=== PATIENT | female | born 1995 | race American Indian/Alaskan Native ===

== ENCOUNTER 2018-10-01 21:55 | Emergency (ER) | payer SELFPAY ==
[2018-10-01 22:05] VITALS: BP 117/61
--- NOTE | 2018-10-01 22:10 | Emergency Department Report ---
Blank Doc - Documentation Documentation: This is a 22-year-old female that presents with right eye foreign body sensati on. Stated feels like a rock is there. This initial assessment diagnostic orders/clinical plan/treatment(s) is/are subject to change based on patient's health status, clinical progression and re-assessment by fellow clinical providers in the ED. Further treatment and workup at subsequent clinical providers discretion. Patient/guardians urged not to elope from ED s their condition may be serious if not clinically assessed and managed. Initial orders include: 1-Patient sent to [facility] for further evaluation and treatment 2- Milligan lamps 3- visual acuity
[2018-10-01] MEDS ORDERED: FUL-GLO OP ONE (22:11)
[2018-10-01] MEDS ORDERED: TETRACAINE 0.5% OU ONE (22:11)
== END 2018-10-02 02:10 | disposition left against medical advice (07) ==
LOC: EDBD → ED 21:55
DX: H57.89 Other specified disorders of eye and adnexa (principal); Z88.6 Allergy status to analgesic agent

== ENCOUNTER 2021-04-26 10:08 | Inpatient (IN) | payer MEDICAID, OTHER ==
[2021-04-26] MEDS ORDERED: SODIUM CHLORIDE 0.9% 1000 ML 1,000 ML IV ONE (10:42)
--- NOTE | 2021-04-26 10:47 | Emergency Department Report ---
ED Female HPI - General Chief complaint: Vaginal Bleeding Stated complaint: WEAKNESS/LBP Time Seen by Provider: 04/26/21 10:41 Source: patient Mode of arrival: Ambulatory Limitations: No Limitations - History of Present Illness Initial comments: 25-year-old female, A1, presents to ED with vaginal bleeding. Patient states she reports approximately 5 weeks when she presented to [facility] week, 8 days ago, for medical . Patient states she was given a pill to take at that time and was instructed to take the other 4 pills, all at once, within 48 hours. Patient waited until 5 days later to take the 4 pills. Patient states she waited because she was already bleeding heavily, with large clots, from the first dose. Patient reports dizziness and syncopal episode. EMS was called, reports initial systolic BP in the 60s. Patient states the cramping and bleeding have improved greatly, however she remains ligh theaded. Patient reports previous ablation at the age of 18. MD Complaint: vaginal bleeding -: week(s) (1) Severity: severe Quality: cramping Consistency: other (Improved) Improves with: none Worsens with: none Are you Now?: Yes Associated Symptoms: vaginal bleeding - Related Data : 2 Para: 0 A: 1 Home Medications Medication Instructions Recorded Confirmed Last Taken No Known Home Medications [No 04/26/21 04/26/21 Unknown Reported Home Medications] Allergies Allergy/AdvReac Type Severity Reaction Status Date / Time morphine Allergy Hives Verified 04/26/21 10:40 ED Review of Systems ROS: Stated complaint: WEAKNESS/LBP Other details as noted in HPI Comment: All other systems reviewed and negative Constitutional: denies: fever Gastrointestinal: abdominal pain Genitourinary: as per HPI ED Past Medical Hx - Surgical History Hx Appendectomy: Yes Additional Surgical History: Tonsilectomy, Non malignant abdominal tumor - Social History Smoking Status: Never Smoker Substance Use Type: None - Medications Home Medications: Home Medications Medication Instructions Recorded Confirmed Last Taken Type No Known Home Medications [No 04/26/21 04/26/21 Unknown History Reported Home Medications] ED Physical Exam - General Limitations: No Limitations General appearance: alert, in no apparent distress - Head Head exam: Present: atraumatic, normocephalic - Eye Eye exam: Present: normal appearance - ENT ENT exam: Present: mucous membranes moist - Neck Neck exam: Present: normal inspection - Respiratory Respiratory exam: Present: normal lung sounds bilaterally. Absent: respiratory distress - Cardiovascular Cardiovascular Exam: Present: normal rhythm, tachycardia - GI/Abdominal GI/Abdominal exam: Present: soft. Absent: distended, tenderness - External exam: Present: normal external exam Speculum exam: Present: vaginal bleeding, other (foul smell present; able to clear a few clots from vaginal vault) - Neurological Exam Neurological exam: Present: alert, oriented X3 - Psychiatric Psychiatric exam: Present: normal affect, normal mood - Skin Skin exam: Present: warm, dry, intact, normal color ED Course Vital Signs 04/26/21 04/26/21 04/26/21 10:19 10:38 10:46 Temperature Pulse Rate 127 H 136 H Respiratory 18 16 20 Rate Blood Pressure 111/55 111/47 Blood Pressure [Right] O2 Sat by Pulse 100 86 Oximetry 04/26/21 04/26/21 04/26/21 11:00 11:13 11:15 Temperature 97.6 F Pulse Rate 129 H 121 H Respiratory 21 14 Rate Blood Pressure 104/40 Blood Pressure 104/40 [Right] O2 Sat by Pulse 100 98 98 Oximetry 04/26/21 04/26/21 04/26/21 11:16 11:30 11:46 Temperature Pulse Rate 123 H 128 H 121 H Respiratory 21 22 21 Rate Blood Pressure 104/40 104/40 104/40 Blood Pressure [Right] O2 Sat by Pulse 100 98 100 Oximetry 04/26/21 04/26/21 04/26/21 12:00 12:16 12:30 Temperature Pulse Rate 122 H 138 H 123 H Respiratory 21 22 21 Rate Blood Pressure 107/45 107/45 107/45 Blood Pressure [Right] O2 Sat by Pulse 100 99 100 Oximetry 04/26/21 04/26/21 04/26/21 13:32 13:46 13:55 Temperature 98.9 F Pulse Rate 123 H Respiratory 19 Rate Blood Pressure 94/32 Blood Pressure [Right] O2 Sat by Pulse 99 100 Oximetry - Reevaluation(s) Reevaluation #1: 04/26/21 12:37 electroplating technician states Hb resulted at 4.4. Result not crossing over into [employer]. Reevaluation #2: 04/26/21 13:05 electroplating technician called to state that WBC is 41 - Consultations Consultation #1: 04/26/21 13:40 Spoke w/ Dr Chapman. Will come down and see patient. ED Medical Decision Making - Lab Data Result diagrams: 04/26/21 10:48 04/26/21 10:48 - Radiology Data Radiology results: report reviewed, image reviewed - Medical Decision Making 25-year-old female presents to ED following syncopal episode with vaginal bleeding. Patient reports heavy vaginal bleeding following last week. Patient tachycardic here in the ED, afebrile, with low normal blood pressure. On pelvic exam, patient found to have foul-smelling vaginal bleeding with clots present in vaginal vault. Ultrasound shows retained products. hCG 6000. There is a delay in CBC resulting, however mechanical laboratory technician called to tell me that patient had a hemoglobin of 4.4. CBC also ended up showing WBCs of 41. Patient possibly septic secondary to retained POC's. She is also severely anemic. Lactic acid and blood cultures have been ordered. Vancomycin and cefepime given, along with normal saline bolus of 30 cc/kg. 2 units of PRBCs have also been ordered. Dr. Chapman came down to evaluate patient and has decided to take her to the OR for D&C. Patient will be admitted by Dr. Chapman. - Differential Diagnosis Anemia, retained POC's Critical Care Time: Yes Critical care time in (mins) excluding proc time.: 35 Critical care attestation.: If time is entered above; I have spent that time in minutes in the direct care of this critically ill patient, excluding procedure time. Critical Care Time: 35 min ED Disposition Clinical Impression: Symptomatic anemia, Vaginal bleeding, Sepsis, Retained products of conception following Disposition: ADMITTED INPATIENT Is pt being admited?: Yes Condition: Stable Referrals: PRIMARY CARE, [Primary Care Provider] - 3-5 Days Time of Disposition: 13:57
[2021-04-26 11:41] LABS: BUN/Creatinine Ratio 33; Blood Urea Nitrogen 30 mg/dL (7-17); Calcium 8.3 mg/dL (8.4-10.2); Hemolysis Index 0
[2021-04-26] MEDS ORDERED: SODIUM CHLORIDE 0.9% 500 ML 500 ML IV ONE ×2 (12:27→14:26)
[2021-04-26 13:01] LABS: Red Blood Count 1.58 M/mm3 (3.65-5.03)
[2021-04-26 13:03] LABS: Hematocrit 13.3 % (30.3-42.9); Hemoglobin 4.4 gm/dl (10.1-14.3); Mean Corpuscular Volume 84 fl (79-97)
[2021-04-26 13:04] LABS: Mean Corpuscular HGB Conc 33 % (30-34); Platelet Count 272 K/mm3 (140-440); Red Cell Distribution Width 14.3 % (13.2-15.2)
[2021-04-26] MEDS ORDERED: PIPERACIL/TAZOBACTA 4.5/NS 100 4.5 GM/100 ML VIAL IV ONE (13:05)
[2021-04-26] MEDS ORDERED: SODIUM CHLORIDE 0.9% 1000 ML IV SOLN IV ONE (13:22)
--- NOTE | 2021-04-26 13:22 | Ultrasound Report ---
OB Ultrasound HISTORY: vag bleeding, post pill. TECHNIQUE: Grayscale and color imaging performed. COMPARISON: None FINDINGS: Uterus measures 12.8 x 4.0 x 8.4 cm with endometrial echocomplex measuring 9 mm. There is a crescentic hypoechoic structure in the lower uterine segment which most likely represents a failed gestational sac. No internal pole or cardiac activity was demonstrated on this exam. Both ovaries are normal in size with a cyst on the right measuring 2.9 cm in maximal dimension, likel y functional. Trace simple pelvic free fluid is present. IMPRESSION: 1. Probable failed gestational sac in the region of the lower uterine segment. 2. Simple right ovarian cyst, likely functional. Signer Name: Robson Mederos MD Signed: 04/26/2021 1:17 PM Workstation Name: [id number]
[2021-04-26] MEDS ORDERED: VANCOMYCIN 1,750 MG in SODIUM CHLORIDE 0.9% 500 ML 500 ML IV ONE (14:00)
[2021-04-26] MEDS ORDERED: SODIUM CHLORIDE 0.9% 1000 ML 1,000 ML ONE (14:35)
[2021-04-26] MEDS ORDERED: HYDROmorphone 1 MG/1 ML INJ ONE (14:35)
[2021-04-26] MEDS ORDERED: propofoL 200 MG/20 ML VIAL IV ONE (14:35)
[2021-04-26] MEDS ORDERED: PHENYLEPHRINE/NS 1,000 MCG/10 ML SYRINGE (OR USE) IV ONE (14:35)
[2021-04-26] MEDS ORDERED: LIDOCAINE MPF (2%) 20 MG/1 ML VIAL 5 ML ONE (14:35)
--- NOTE | 2021-04-26 14:41 | History and Physical Report ---
History of Present Illness Date of examination: 04/26/21 History of present illness: 25-year-old female, para 0-0-1-0 presents to ED with vaginal bleeding. Patient states she reports approximately 5 weeks when she presented to [facility], 8 days ago, for medical . Patient states she was given a pill to take at that time and was instructed to take the other 4 pills, all at once, within 48 hours. Patient states she had bleeding after taking the first pill so she waited until 5 days later to take the 4 pills 3 days ago Friday the .. Patient reports dizziness and syncopal episode. EMS was called, reports initial systolic BP in the 60s. Patient states the cramping and bleeding have improved greatly, however she remains lightheaded. Patient's work-up in ED revealed a hemoglobin of 4.4 ultrasound shows "probable failed gestational sac" with products and cervical os. Patient still passing large clots. I attempted evacuation of her cervical os in the ED but I was un successful. Patient is appears to be septic and very anemic will moved to operating room for suction D&C. Past History Past Medical History: migraines, other (COVID-29 August 2020 not hospitalized) Past Surgical History: appendectomy, cholecystectomy, Other (Elective surgical at age 18) Medications and Allergies Allergies Allergy/AdvReac Type Severity Reaction Status Date / Time morphine Allergy Hives Verified 04/26/21 10:40 Home Medications Medication Instructions Recorded Confirmed Last Taken Type No Known Home Medications [No 04/26/21 04/26/21 Unknown History Reported Home Medications] Active Meds: Active Medications Vancomycin HCl 1,750 mg/ (Sodium Chloride) 535 mls @ 333 mls/hr IV ONCE ONE; Protocol Stop: 04/26/21 15:36 Last Admin: 04/26/21 14:34 Dose: 333 mls/hr Documented by: Sodium Chloride (Nacl 0.9% 500 Ml) 500 mls @ 0 mls/hr IV ONCE [facility] Stop: 04/27/21 14:25 Exam - Constitutional Vitals: Temp Pulse Resp BP Pulse Ox 98.9 F 123 H 19 94/32 100 04/26/21 13:55 04/26/21 13:46 04/26/21 13:46 04/26/21 13:46 04/26/21 13:46 General appearance: Present: mild distress, other (Complain of headache) - Respiratory Respiratory effort: normal - Cardiovascular Rhythm: other (Tachycardic) - Extremities Extremities: no ischemia, pulses intact - Abdominal General gastrointestinal: Present: soft, non-tender Female genitourinary: Present: normal, other (Blood in vaginal cuff could not clearly see her cervical os no obvious products of conception) - Rectal Rectal Exam: deferred - Integumentary Integumentary: Present: warm, dry - Psychiatric Psychiatric: appropriate mood/affect, intact judgment & insight - Neurologic Neurologic: moves all extremities Results - Labs CBC & Chem 7: 04/26/21 10:48 04/26/21 10:48 Labs: Abnormal lab results 04/26/21 04/26/21 04/26/21 Range/Units 10:48 10:48 10:48 WBC 41.1 H* (4.5-11.0) K/mm3 RBC 1.58 L (3.65-5.03) M/mm3 Hgb 4.4 L* (10.1-14.3) gm/dl Hct 13.3 L* (30.3-42.9) % Carbon Dioxide 19 L (22-30) mmol/L BUN 30 H (7-17) mg/dL Glucose 134 H (65-100) mg/dL Calcium 8.3 L (8.4-10.2) mg/dL HCG, Quant 6618 H (0-4) mIU/mL Crossmatch 04/26/21 Range/Units 10:48 WBC (4.5-11.0) K/mm3 RBC (3.65-5.03) M/mm3 Hgb (10.1-14.3) gm/dl Hct (30.3-42.9) % Carbon Dioxide (22-30) mmol/L BUN (7-17) mg/dL Glucose (65-100) mg/dL Calcium (8.4-10.2) mg/dL HCG, Quant (0-4) mIU/mL Crossmatch See Detail Assessment and Plan - Patient Problems (1) Retained products of conception following Current Visit: Yes Status: Acute Plan to address problem: Attempted to remove products of conception in the ER but was unsuccessful. We will move to operating room for suction D&C. Discussed with patient risks of the procedure including infection, bleeding possibly heavy enough to require more blood transfusion and possible perforation of the uterus. All questions answered patient understands and agrees with proceeding. (2) Sepsis Current Visit: Yes Status: Acute Qualifiers: Sepsis type: sepsis due to unspecified organism Plan to address problem: Antibiotics were started in the emergency room and will continue antibiotics postoperatively. Blood cultures also drawn in the emergency room (3) Symptomatic anemia Current Visit: Yes Status: Acute Plan to address problem: Patient has been typed and crossed for 2 units will have 2units on hold (4) Vaginal bleeding Current Visit: Yes Status: Acute
[2021-04-26] MEDS ORDERED: KETAMINE/STERILE WATER 50 MG/ML SYRINGE ONE (14:42)
[2021-04-26] MEDS ORDERED: SILVER NITRATE APPLICATOR 1 EA TP ONE (14:43)
--- NOTE | 2021-04-26 14:52 | Anesthesia Consultation ---
Anesthesia Consult and Med Hx Date of service: 04/26/21 - Airway Anesthetic Teeth Evaluation: Good ROM Head & Neck: Adequate Mental/Hyoid Distance: Adequate Mallampati Class: Class III Intubation Access Assessment: Possibly Difficult - Pre-Operative Health Status ASA Pre-Surgery Classification: ASA3, Emergency Proposed Anesthetic Plan: General - Pulmonary Hx Smoking: No Hx Respiratory Symptoms: No - Cardiovascular System Hx Hypertension: No - Central Nervous System CVA: No - Endocrine Hx Renal Disease: No Hx Liver Disease: No Hx Insulin Dependent Diabetes: No Hx Non-Insulin Dependent Diabetes: No Hx Thyroid Disease: No - Hematic Hx Anemia: Yes (severe anemia on admission H/H 4.4/13) - Other Systems Hx Obesity: Yes (BMI 34) - Additional Comments Anesthesia Medical History Comments: Presented with septic and severe anemia now scheduled for suction D&C. Hypotensive, tachycardic in ED. Blood transfusion just started immediately prior to arrival to OR. 2 units ordered for transfusion per ED. Will order 2 additional units for standby.
--- NOTE | 2021-04-26 14:52 | Anesthesia Day of Surgery ---
Anesthesia Day of Surgery - Day of Surgery Patient Examined: Yes Patient H&P Reviewed: Yes Patient is NPO: Yes
[2021-04-26] MEDS ORDERED: SODIUM CHLORIDE 0.9% 500 ML 500 ML IV SCH (15:00)
[2021-04-26] MEDS ORDERED: MIDAZOLAM 2 MG/2 ML INJ ONE (15:01)
[2021-04-26] MEDS ORDERED: METHYLERGONOVINE MALEATE 0.2 MG/ML VIAL IM ONE (15:17)
[2021-04-26] MEDS ORDERED: SODIUM CHLORIDE 0.9% IRR 1,000 ML BOTTLE IR ONE (15:27)
[2021-04-26] MEDS ORDERED: dexAMETHasone 20 MG/5 ML VIAL ONE (15:41)
[2021-04-26] MEDS ORDERED: KETOROLAC 30 MG/1 ML INJ ONE (15:41)
[2021-04-26] MEDS ORDERED: ONDANSETRON 4 MG/2 ML INJ ONE (15:41)
[2021-04-26] MEDS ORDERED: oxyCODONE /ACETAMINOPHEN 5-325MG TAB PO PRN (15:51)
[2021-04-26] MEDS ORDERED: IBUPROFEN 800 MG TAB PO PRN (15:51)
[2021-04-26] MEDS ORDERED: D5W/LACTATED RINGERS 1,000 ML IV SCH (16:00)
--- NOTE | 2021-04-26 16:07 | Operative Report ---
Operative Report Operative Report: Date of procedure: April 26, 2021 Pre-operative diagnosis: Septic incomplete Post-operative diagnosis: Same Procedure name(s): Suction dilatation and curettage Surgeon: Mekhi Chapman MD Metal Fabricator: [] Anesthesia: General EBL: 75 mL Complications: None Findings: Patient with a dilated inflamed cervix and a large amount of tissue removed consistent with products of conception Specimen(s): Uterine contents Procedure: The patient was brought operating room where general anesthesia was induced without difficulty. Patient was placed in dorsal lithotomy position prepped and draped in the usual sterile manner. Rubber catheter was used to empty her bladder. Speculum placed in the vagina. Tenaculum was placed at 12:00. The cervix was dilated progressively with Hegar dilators. A 10 mm suction catheter was placed through the cervical os. Several passes of the hicks ction catheter removed the uterine contents. A gentle curettage was done with a banjo curettte, until a gritty sensation was felt throughout the uterine cavity. Further suction with the suction curettage revealed no further products. All instruments were removed patient with some oozing from inflamed cervix. Kerlix gauze was placed to pack her vagina. She was awakened in the operating room and accompanied to recovery room in good condition.
[2021-04-26] MEDS ORDERED: ONDANSETRON 4 MG/2 ML INJ IV PRN (16:08)
[2021-04-26] MEDS ORDERED: HYDROmorphone 1 MG/1 ML INJ IV PRN (16:08)
--- NOTE | 2021-04-26 18:36 | Post Anesthesia Evaluation ---
- Post Anesthesia Evaluation Patient Participated: Yes Airway Patent: Yes Stable Respiratory Function: Yes Nausea/Vomiting: No Temp > 96.8F: Yes Pain Manageable: Yes Adequeate Hydration: Yes Anesthesia Complications: No
[2021-04-26 19:53] LABS: Band Neutrophils # (Manual) 6.2 K/mm3; Total Cells Counted 100
[2021-04-26 19:56] LABS: Hypochromasia 3+; Platelet Estimate Consistent w Auto
--- NOTE | 2021-04-26 21:08 | Event Note ---
Date: 04/26/21 Patient states she is feeling much better awake and alert. Vital signs stable is afebrile. Patient status post 2 units of packed red blood cells. We will check H&H. Removed her vaginal pack with moderate amount of blood no blood clots noted. Patient desires regular diet with advance her diet.
[2021-04-26 21:52] LABS: Hematocrit 21.2 % (30.3-42.9); Hemoglobin 7.2 gm/dl (10.1-14.3)
[2021-04-27] MEDS ORDERED: SODIUM CHLORIDE 0.9% 500 ML 500 ML IV ONE ×2 (00:40→01:28)
--- NOTE | 2021-04-27 01:00 | Event Note ---
Date: 04/27/21 Called by RN due to Lactic acid 5.1 states patient without complains.VSS AFEB with scant bleeding. Discussed with hospitalist BUNCH TRIMMER MOLD button sewing machine operator reccomended IV antibitics, IV hydration,monitor vitals. She states she will discuss with Dr. Iniguez for any additional advise. Will transfuse RBC, vitals q 2hrs and consult ID
[2021-04-27] MEDS: GENTAMICIN/NS 80 MG/100 ML 100 ML IV SCH ×2 (01:46→09:17)
[2021-04-27 08:42] LABS: Hematocrit 23.9 % (30.3-42.9); Hemoglobin 8.1 gm/dl (10.1-14.3)
--- NOTE | 2021-04-27 14:03 | Consultation ---
History of Present Illness - Reason for Consult Consult date: 04/27/21 septic - History of Present Illness 25-year-old female with no medical history, who had a 5 weeks and presented to [facility] last week for a medical admitted on 04/26/2021 secondary to dizziness, syncopal episode and uterine cramping associated with bleeding. Patient denies any fever, chills, nausea, vomiting, diarrhea. Urinary symptoms. Patient was given an pill and was instructed to take 4 more pills. After the first patient started having vaginal bleeding, she waited for 5 days to take the rest of pills. Patient also 04/23/2021. After that patient started feeling sick dizziness and syncope. EMS was called, systolic blood pressure was found down to 60s. On arrival, temperature, initial WBC 41,000. Hemoglobin 4.4. Platelets 272. Creatinine 0.9. Lactate 2.2 -- >5.1. Ultrasound shows gestational sac. Review of Systems: positive in bold print General: fever, chills, malaise Cutaneous: rash, pruritus Head: headaches or injury Eyes: changes in vision, eye pain, double vision Ears: ear pain, ear discharge, ringing or hearing loss Nose: nose bleeding, stuffiness Mouth & throat: bleeding gums, horseness, no dental problems, or swollen glands Neck: no pain, node enlargement/lumps, tyroid enlargement or tenderness Respiratory: SOB, cough, BAER, wheezing, sputum, hemoptysis, pleuritic chest pain Cardiovascular: chest pain, leg edema, cyanosis, BAER, orthopnea Musculoskeletal: edema, deformities, pain Gastrointestinal: Abdominal pain, nausea, vomiting, hematemesis, diarrhea, constipation, melena, bright red blood in stools, fecal incontinence, jaundice Genitourinary/Reproductive: Vaginal bleeding, frequent urination, dysuria, hematuria, incontinence Neurogical: seizures, headaches, weakness, paresthesias, loss of speech or vision; memory loss, vertigo, tremors, numbness Psychiatric: stable mood; excessive anxiety, sadness or moodiness Past History Past Medical History: migraines, other (COVID-29 August 2020 not hospitalized) Past Surgical History: appendectomy, cholecystectomy, Other (Elective surgical at age 18) Medications and Allergies Allergies Allergy/AdvReac Type Severity Reaction Status Date / Time morphine Allergy Hives Verified 04/26/21 10:40 Home Medications Medication Instructions Recorded Confirmed Last Taken Type No Known Home Medications [No 04/26/21 04/26/21 Unknown History Reported Home Medications] Active Meds: Active Medications Acetaminophen (Acetaminophen 325 Mg Tab) 650 mg PO Q4H PRN PRN Reason: Pain, Mild (1-3) Clindamycin HCl (Cleocin 900 Mg/50 Ml) 900 mg in 50 mls @ 100 mls/hr IV Q8H [facility]; Protocol Last Admin: 04/27/21 07:42 Dose: 100 mls/hr Documented by: Gentamicin Sulfate/Sodium Chloride (Gentamicin/Ns 80 Mg/100 Ml) 100 mls @ 133.333 mls/hr IV Q8H [facility] Last Admin: 04/27/21 09:17 Dose: 133.333 mls/hr Documented by: Dextrose/Lactated Ringer's ([email or web address]) 1,000 mls @ 150 mls/hr IV DIRECT [facility] Ibuprofen (Ibuprofen 800 Mg Tab) 800 mg PO Q8H PRN PRN Reason: Pain, Moderate (4-6) Oxycodone/Acetaminophen (Oxycodone /Acetaminophen 5-325mg Tab) 1 tab PO Q6H PRN PRN Reason: Pain, Moderate (4-6) Sodium Chloride (Sodium Chloride 0.9% 10 Ml Flush Syringe) 10 ml IV PRN PRN PRN Reason: LINE FLUSH Physical Examination - Physical Exam Narrative exam: General appearance: Alert in NAD pleasant Eyes: anicteric sclerae, moist conjunctivae; no lid-lag; PERRLA HENT: Normocephalic, Atraumatic; normal external ears, nares open, oropharynx clear. Neck: supple, tracheal midline, no JVD Lungs: CTA, with normal respiratory effort and no intercostal retractions CV: RRR no murmur Abdomen: Soft, non-tender; no masses or hepatosplenomegaly Extremities: no edema, no cyanosis Skin: No rash. Psych: no agitated Neuro: alert and oriented x 3. Moving all extermities - Constitutional Vitals: Vital Signs Temp Pulse Resp BP Pulse Ox 98.1 F 110 H 18 102/55 100 04/27/21 12:05 04/27/21 12:05 04/27/21 12:05 04/27/21 12:05 04/27/21 12:05 Temperature -Last 24 Hours Temperature 98.1 F Temperature 98.2 F Temperature 98.6 F Temperature 98.5 F Temperature 98.6 F Temperature 98.7 F Temperature 98.5 F Temperature 98.9 F Temperature 98.7 F Temperature 98.6 F Temperature 98.7 F Temperature 98.7 F Temperature 98.3 F Temperature 98.1 F Temperature 98.0 F Temperature 98.4 F Temperature 99.3 F Temperature 98.6 F Results - Labs CBC & Chem 7: 04/27/21 08:09 04/26/21 10:48 Labs: Abnormal lab results 04/26/21 04/26/21 04/26/21 Range/Units 10:48 10:48 13:57 WBC 41.1 H* (4.5-11.0) K/mm3 RBC 1.58 L (3.65-5.03) M/mm3 Hgb 4.4 L* (10.1-14.3) gm/dl Hct 13.3 L* (30.3-42.9) % Seg Neuts % (Manual) 81.0 H (40.0-70.0) % Nucleated RBC % 2.0 H (0.0-0.9) % Seg Neutrophils # Man 33.3 H (1.8-7.7) K/mm3 Lymphocytes # (Manual) 0.0 L (1.2-5.4) K/mm3 Monocytes # (Manual) 1.6 H (0.0-0.8) K/mm3 Lactic Acid 2.20 H* (0.7-2.0) mmol/L Crossmatch See Detail 04/26/21 04/26/21 04/26/21 Range/Units 16:18 20:36 21:33 WBC (4.5-11.0) K/mm3 RBC (3.65-5.03) M/mm3 Hgb 7.2 L (10.1-14.3) gm/dl Hct 21.2 L D (30.3-42.9) % Seg Neuts % (Manual) (40.0-70.0) % Nucleated RBC % (0.0-0.9) % Seg Neutrophils # Man (1.8-7.7) K/mm3 Lymphocytes # (Manual) (1.2-5.4) K/mm3 Monocytes # (Manual) (0.0-0.8) K/mm3 Lactic Acid 2.40 H* 2.20 H* (0.7-2.0) mmol/L Crossmatch 04/26/21 04/27/21 Range/Units 23:08 08:09 WBC (4.5-11.0) K/mm3 RBC (3.65-5.03) M/mm3 Hgb 8.1 L (10.1-14.3) gm/dl Hct 23.9 L (30.3-42.9) % Seg Neuts % (Manual) (40.0-70.0) % Nucleated RBC % (0.0-0.9) % Seg Neutrophils # Man (1.8-7.7) K/mm3 Lymphocytes # (Manual) (1.2-5.4) K/mm3 Monocytes # (Manual) (0.0-0.8) K/mm3 Lactic Acid 5.10 H* (0.7-2.0) mmol/L Crossmatch Assessment and Plan Cultures: Culture pending Assessment: 25-year-old female with no medical history, who had a 5 weeks and presented to [facility] last week for a medical admitted on 04/26/2021 secondary to dizziness, syncopal episode and uterine cramping associated with bleeding: #Severe sepsis: Present on admission with, reaction WBC 41,000, elevated lactate ; likely secondary to septic +/-severe anemia. #Septic incomplete : Likely secondary to vaginal adithya and anaerobes. Status post I+C on 03/26/2021. Recommendations: -Stop gentamicin, ampicillin and clindamycin -Start Zosyn 4.5 g IV every 8 hours -Monitor WBC, CBC ordered -Check urinalysis Will follow. Kimmy Lopez MD Infectious Diseases Dial [facility] M [phone] O [phone]
--- NOTE | 2021-04-27 14:06 | Progress Note ---
Assessment and Plan - Patient Problems (1) Retained products of conception following Current Visit: Yes Status: Acute Plan to address problem: s/p D&C (2) Sepsis Current Visit: Yes Status: Acute Qualifiers: Sepsis type: sepsis due to unspecified organism Plan to address problem: ID consultation pending (3) Symptomatic anemia Current Visit: Yes Status: Acute Plan to address problem: S/P 3uPRBC's asymptomatic (4) Vaginal bleeding Current Visit: Yes Status: Resolved History Interval history: No complaints, she denies bleeding or pain Hospitalist Physical - Constitutional Vitals: Temp Pulse Resp BP Pulse Ox 98.1 F 110 H 18 102/55 100 04/27/21 12:05 04/27/21 12:05 04/27/21 12:05 04/27/21 12:05 04/27/21 12:05 General appearance: Present: mild distress, other (Complain of headache) Results - Labs CBC & Chem 7: 04/27/21 08:09 04/26/21 10:48 Labs: Laboratory Last Values WBC 41.1 K/mm3 (4.5-11.0) H* 04/26/21 10:48 RBC 1.58 M/mm3 (3.65-5.03) L 04/26/21 10:48 Hgb 8.1 gm/dl (10.1-14.3) L 04/27/21 08:09 Hct 23.9 % (30.3-42.9) L 04/27/21 08:09 MCV 84 fl (79-97) 04/26/21 10:48 MCH 28 pg (28-32) 04/26/21 10:48 MCHC 33 % (30-34) 04/26/21 10:48 RDW 14.3 % (13.2-15.2) 04/26/21 10:48 Plt Count 272 K/mm3 (140-440) 04/26/21 10:48 Add Manual Diff Complete 04/26/21 10:48 Total Counted 100 04/26/21 10:48 Seg Neuts % (Manual) 81.0 % (40.0-70.0) H 04/26/21 10:48 Band Neutrophils % 15.0 % 04/26/21 10:48 Monocytes % (Manual) 4.0 % (0.0-7.3) 04/26/21 10:48 Nucleated RBC % 2.0 % (0.0-0.9) H 04/26/21 10:48 Seg Neutrophils # Man 33.3 K/mm3 (1.8-7.7) H 04/26/21 10:48 Band Neutrophils # 6.2 K/mm3 04/26/21 10:48 Lymphocytes # (Manual) 0.0 K/mm3 (1.2-5.4) L 04/26/21 10:48 Abs React Lymphs (Man) 0.0 K/mm3 04/26/21 10:48 Monocytes # (Manual) 1.6 K/mm3 (0.0-0.8) H 04/26/21 10:48 Eosinophils # (Manual) 0.0 K/mm3 (0.0-0.4) 04/26/21 10:48 Basophils # (Manual) 0.0 K/mm3 (0.0-0.1) 04/26/21 10:48 Metamyelocytes # 0.0 K/mm3 04/26/21 10:48 Myelocytes # 0.0 K/mm3 04/26/21 10:48 Promyelocytes # 0.0 K/mm3 04/26/21 10:48 Blast Cells # 0.0 K/mm3 04/26/21 10:48 Hypersegmented Neuts Not Reportable 04/26/21 10:48 Hyposegmented Neuts Not Reportable 04/26/21 10:48 Hypogranular Neuts Not Reportable 04/26/21 10:48 Smudge Cells Not Reportable 04/26/21 10:48 Toxic Granulation Not Reportable 04/26/21 10:48 Toxic Vacuolation Not Reportable 04/26/21 10:48 Dohle Bodies Not Reportable 04/26/21 10:48 Pelger-Huet Anomaly Not Reportable 04/26/21 10:48 Serjio Rods Not Reportable 04/26/21 10:48 Platelet Estimate Consistent w auto 04/26/21 10:48 Clumped Platelets Not Reportable 04/26/21 10:48 Plt Clumps, EDTA Not Reportable 04/26/21 10:48 Large Platelets Not Reportable 04/26/21 10:48 Giant Platelets Not Reportable 04/26/21 10:48 Platelet Satelliting Not Reportable 04/26/21 10:48 Plt Morphology Comment Not Reportable 04/26/21 10:48 RBC Morphology Not Reportable 04/26/21 10:48 Dimorphic RBCs Not Reportable 04/26/21 10:48 Polychromasia Not Reportable 04/26/21 10:48 Hypochromasia 3+ 04/26/21 10:48 Poikilocytosis Not Reportable 04/26/21 10:48 Anisocytosis Not Reportable 04/26/21 10:48 Microcytosis Not Reportable 04/26/21 10:48 Macrocytosis Not Reportable 04/26/21 10:48 Spherocytes Not Reportable 04/26/21 10:48 Pappenheimer Bodies Not Reportable 04/26/21 10:48 Sickle Cells Not Reportable 04/26/21 10:48 Target Cells Not Reportable 04/26/21 10:48 Tear Drop Cells Not Reportable 04/26/21 10:48 Ovalocytes Not Reportable 04/26/21 10:48 Helmet Cells Not Reportable 04/26/21 10:[address] [place] Bodies Not Reportable 04/26/21 10:48 Dustin Rings Not Reportable 04/26/21 10:48 [place] Cells Not Reportable 04/26/21 10:48 Bite Cells Not Reportable 04/26/21 10:48 Crenated Cell Not Reportable 04/26/21 10:48 Elliptocytes Not Reportable 04/26/21 10:48 Acanthocytes (Spur) Not Reportable 04/26/21 10:48 Rouleaux Not Reportable 04/26/21 10:48 Hemoglobin C Crystals Not Reportable 04/26/21 10:48 Schistocytes Not Reportable 04/26/21 10:48 Malaria parasites Not Reportable 04/26/21 10:48 Geoffrey Bodies Not Reportable 04/26/21 10:48 Hem Pathologist Commnt No 04/26/21 10:48 Sodium 137 mmol/L (137-145) 04/26/21 10:48 Potassium 4.3 mmol/L (3.6-5.0) 04/26/21 10:48 Chloride 103.6 mmol/L (98-107) 04/26/21 10:48 Carbon Dioxide 19 mmol/L (22-30) L 04/26/21 10:48 Anion Gap 19 mmol/L 04/26/21 10:48 BUN 30 mg/dL (7-17) H 04/26/21 10:48 Creatinine 0.9 mg/dL (0.6-1.2) 04/26/21 10:48 Estimated GFR > 60 ml/min 04/26/21 10:48 BUN/Creatinine Ratio 33 % 04/26/21 10:48 Glucose 134 mg/dL (65-100) H 04/26/21 10:48 Lactic Acid 1.30 mmol/L (0.7-2.0) 04/27/21 08:09 Calcium 8.3 mg/dL (8.4-10.2) L 04/26/21 10:48 HCG, Quant 6618 mIU/mL (0-4) H 04/26/21 10:48 Blood Type A POSITIVE 04/26/21 10:48 Antibody Screen Negative 04/26/21 10:48 Crossmatch See Detail 04/26/21 10:48 Microbiology: Microbiology 04/26/21 20:36 Peripheral/Venous Blood Culture - Preliminary Culture in Progress 04/26/21 20:36 Peripheral/Venous Blood Culture - Preliminary Culture in Progress Daly/IV: Voiding Method Toilet Active Medications - Current Medications Current Medications: Generic Name Dose Route Start Last Admin Trade Name Freq PRN Reason Stop Dose Admin Acetaminophen 650 mg 04/26/21 15:51 Acetaminophen 325 Mg Tab PO Q4H PRN Pain, Mild (1-3) Clindamycin HCl 900 mg in 50 mls @ 100 mls/hr 04/27/21 00:00 04/27/21 07:42 Cleocin 900 Mg/50 Ml IV 100 mls/hr Q8H [facility] Administration Protocol Gentamicin Sulfate/Sodium Chloride 100 mls @ 133.333 mls/hr 04/27/21 02:00 04/27/21 09:17 Gentamicin/Ns 80 Mg/100 Ml IV 133.333 mls/hr Q8H [facility] Administration Dextrose/Lactated Ringer's 1,000 mls @ 150 mls/hr 04/27/21 01:00 D5lr IV DIRECT [facility] Ibuprofen 800 mg 04/26/21 15:51 Ibuprofen 800 Mg Tab PO Q8H PRN Pain, Moderate (4-6) Oxycodone/Acetaminophen 1 tab 04/26/21 15:51 Oxycodone /Acetaminophen 5-325mg Tab PO Q6H PRN Pain, Moderate (4-6) Sodium Chloride 10 ml 04/26/21 15:51 Sodium Chloride 0.9% 10 Ml Flush Syringe IV PRN PRN LINE FLUSH
[2021-04-27] MEDS: PIPERACIL/TAZOBACTA 4.5/NS 100 4.5 GM/100 ML VIAL IV SCH ×2 (15:20→22:09)
[2021-04-27 15:34] LABS: Hematocrit 23.3 % (30.3-42.9); Mean Corpuscular HGB Conc 34 % (30-34); Mean Corpuscular Volume 88 fl (79-97); Platelet Count 203 K/mm3 (140-440); Red Blood Count 2.64 M/mm3 (3.65-5.03); Red Cell Distribution Width 15.8 % (13.2-15.2)
[2021-04-27 17:28] LABS: Total Cells Counted 100
[2021-04-27 17:29] LABS: Myelocytes # (Manual) 0.3 K/mm3; Platelet Estimate Consistent w Auto; RBC Morphology Normal
[2021-04-27] MEDS: D5W/LACTATED RINGERS 1,000 ML IV SCH (17:49)
[2021-04-28] MEDS: D5W/LACTATED RINGERS 1,000 ML IV SCH (03:31)
[2021-04-28 04:44] LABS: Bacteria,Urine 1+ /HPF (Negative); Bilirubin,Urine NEG (Negative); Blood,Urine MOD (Negative); Color,Urine Yellow (Yellow); Mucus,Urine FEW /HPF; Urobilinogen,Urine < 2.0 mg/dL (<2.0)
[2021-04-28] MEDS: PIPERACIL/TAZOBACTA 4.5/NS 100 4.5 GM/100 ML VIAL IV SCH ×3 (07:45→18:12)
--- NOTE | 2021-04-28 09:58 | Progress Note ---
Assessment and Plan - Patient Problems (1) Retained products of conception following Current Visit: Yes Status: Acute Plan to address problem: POD #2 s/p suction D&C in stable condition (2) Sepsis Current Visit: Yes Status: Acute Qualifiers: Sepsis type: sepsis due to unspecified organism Plan to address problem: -s/p ID consult. Antibiotics switched to Zosyn. Per ID recommend 48 hours of IV therapy. -Discussed with patient importance of replacement of IV for continued therapy. Patient voiced understanding. -Consider transition to oral antibiotics after IV therapy. Recommend Augmentin q12 and Doxycycline 100 mg BID for 7-10 days. -Continue to trend WBC with daily CBC (3) Symptomatic anemia Current Visit: Yes Status: Acute Plan to address problem: -Hgb stable at 8.0 and patient asymptomatic -Will continue to monitor (4) Vaginal bleeding Current Visit: Yes Status: Resolved Plan to address problem: -Scant bleeding, will continue to monitor (5) Migraine Onset Date: ~04/27/21 Current Visit: Yes Status: Acute Qualifiers: Migraine type: without aura Plan to address problem: -s/p Motrin and percoet with minimal relief - Fioricet ordered. Will follow up symptoms. Subjective Date of service: 04/28/21 Principal diagnosis: Sepsis Interval history: Patient alseep, easily aroused. Notes overall doing ok. Complains of migraine, not improved with medication given overnight. Otherwise without complaint. IV infiltrated and states she would not allow nurse to replace this AM. Denies any abdominal pain. Notes scant vaginal bleeding. Objective - Constitutional Vitals: Vital Signs - 12hr 04/28/21 04/28/21 04/28/21 00:12 00:14 03:28 Temperature 98.2 F 98.0 F Pulse Rate 116 H Respiratory 20 20 12 Rate Blood Pressure 87/44 99/57 Blood Pressure [Right] O2 Sat by Pulse 98 Oximetry 04/28/21 04/28/21 03:53 07:30 Temperature 98.2 F 99.2 F Pulse Rate 96 H Respiratory 20 18 Rate Blood Pressure 111/54 Blood Pressure 114/56 [Right] O2 Sat by Pulse 100 93 Oximetry General appearance: Present: no acute distress - Respiratory Respiratory effort: normal - Gastrointestinal General gastrointestinal: Present: soft, non-tender, non-distended - Genitourinary Female genitourinary: deferred - Psychiatric Psychiatric: appropriate mood/affect - Labs CBC & Chem 7: 04/27/21 15:11 04/26/21 10:48 Labs: Abnormal lab results 04/26/21 04/27/21 04/28/21 Range/Units 10:48 15:11 03:40 WBC 26.4 H (4.5-11.0) K/mm3 RBC 2.64 L (3.65-5.03) M/mm3 Hgb 8.0 L (10.1-14.3) gm/dl Hct 23.3 L (30.3-42.9) % RDW 15.8 H (13.2-15.2) % Seg Neuts % (Manual) 85.0 H (40.0-70.0) % Lymphocytes % (Manual) 13.0 L (13.4-35.0) % Nucleated RBC % 2.0 H (0.0-0.9) % Seg Neutrophils # Man 22.4 H (1.8-7.7) K/mm3 Ur Specific [place] 1.032 H (1.003-1.030) Urine WBC (Auto) 14.0 H (0.0-6.0) /HPF Crossmatch See Detail Medications & Allergies - Medications Allergies/Adverse Reactions: Allergies morphine Allergy (Verified 04/26/21 10:40) Hives Home Medications: Home Medications Medication Instructions Recorded Confirmed Last Taken Type No Known Home Medications [No 04/26/21 04/26/21 Unknown History Reported Home Medications] Active Medications: Generic Name Dose Route Start Last Admin Trade Name Edgardq PRN Reason Stop Dose Admin Acetaminophen 650 mg 04/26/21 15:51 Acetaminophen 325 Mg Tab PO Q4H PRN Pain, Mild (1-3) Acetaminophen/Butalbital/Caffeine 1 tab 04/28/21 09:41 Butalb/Acetaminophen/Caffeine Tab PO Q4H PRN Headache Dextrose/Lactated Ringer's 1,000 mls @ 150 mls/hr 04/27/21 01:00 04/28/21 03:31 D5lr IV 150 mls/hr DIRECT [facility] Administration Piperacillin Sod/Tazobactam Sod 4.5 gm in 100 mls @ 200 mls/hr 04/27/21 15:00 04/27/21 22:39 Zosyn/Ns 4.5gm/100ml IV Infused Q8HR [facility] Infusion Protocol Ibuprofen 800 mg 04/26/21 15:51 04/28/21 03:28 Ibuprofen 800 Mg Tab PO 800 mg Q8H PRN Administration Pain, Moderate (4-6) Oxycodone/Acetaminophen 1 tab 04/26/21 15:51 04/27/21 17:28 Oxycodone /Acetaminophen 5-325mg Tab PO 1 tab Q6H PRN Administration Pain, Moderate (4-6) Sodium Chloride 10 ml 04/26/21 15:51 Sodium Chloride 0.9% 10 Ml Flush Syringe IV PRN PRN LINE FLUSH
[2021-04-28] MEDS: BUTALB/ACETAMINOPHEN/CAFFEINE TAB PO PRN (10:24)
[2021-04-28 11:57] LABS: Hematocrit 22.7 % (30.3-42.9); Hemoglobin 7.9 gm/dl (10.1-14.3); Mean Corpuscular HGB Conc 35 % (30-34); Mean Corpuscular Volume 89 fl (79-97); Platelet Count 184 K/mm3 (140-440); Red Blood Count 2.56 M/mm3 (3.65-5.03); Red Cell Distribution Width 15.8 % (13.2-15.2)
--- NOTE | 2021-04-28 12:58 | Event Note ---
Date: 04/28/21 Chart reviewed. WBC significantly improved. Afebrile. Continue IV Zosyn while inpatient, upon discharge, p.o. Augmentin 875 mg twice daily plus p.o. doxycycline 100 mg twice daily for 7 days
[2021-04-28 14:14] LABS: Myelocytes # (Manual) 0.3 K/mm3; Platelet Estimate Consistent w Auto; Total Cells Counted 100
[2021-04-28] MEDS: ACETAMINOPHEN 325 MG TAB PO PRN (17:02)
[2021-04-28] MEDS: LACTATED RINGERS 1,000 ML IV SCH (17:02)
[2021-04-29] MEDS: LACTATED RINGERS 1,000 ML IV SCH ×3 (00:42→22:19)
[2021-04-29] MEDS: PIPERACIL/TAZOBACTA 4.5/NS 100 4.5 GM/100 ML VIAL IV SCH (03:08)
--- NOTE | 2021-04-29 03:41 | Event Note ---
Date: 04/29/21 Received call from RN that patient with cough and SOB. Cough began last night, but currently worsening. Notes when patient coughing and on room air, desats to 80s. Febrile at 1638, but currently afebrile. S/p respiratory eval which unremarkable, O2 placed, but patient does not keep on. When O2 in place sats 95- 97. Patient believes due to bronchitis. Robitussin for cough. RT eval for breathing treatment. CXR, CT PE for further eval.
[2021-04-29] MEDS ORDERED: SODIUM CHLORIDE FOR INHALATION NEBU 3 ML ONE (04:05)
[2021-04-29] MEDS: guaiFENesin DM 200/20 MG ORAL LIQD 10 ML PO PRN ×4 (04:28→22:31)
--- NOTE | 2021-04-29 04:37 | XRay Report ---
XR chest 1V ap INDICATION / CLINICAL INFORMATION: cough/sob. COMPARISON: None available. FINDINGS: SUPPORT DEVICES: None. HEART /PULMONARY VASCULATURE: No significant abnormality. LUNGS / PLEURA: Moderate pulmonary airspace consolidations are present bilaterally. No sizable pleura l effusion. No pneumothorax. ADDITIONAL FINDINGS: No significant additional findings. IMPRESSION: Moderate pulmonary airspace opacities, compatible with multifocal pneumonia. Signer Name: Aguila Arnold MD Signed: 04/29/2021 4:33 AM Workstation Name: [id number]
[2021-04-29] MEDS ORDERED: ALBUTEROL 2.5 MG/3 ML NEBU IH ONE (04:45)
[2021-04-29] MEDS ORDERED: AYR SALINE NASAL GEL 14.1 GM NS PRN (04:50)
[2021-04-29] MEDS: BUTALB/ACETAMINOPHEN/CAFFEINE TAB PO PRN (09:13)
--- NOTE | 2021-04-29 09:18 | Progress Note ---
Assessment and Plan - Patient Problems (1) Pneumonia Onset Date: ~04/29/21 Current Visit: Yes Status: Acute Qualifiers: Pneumonia type: due to unspecified organism Laterality: bilateral Qualified Code(s): J18.9 - Pneumonia, unspecified organism Plan to address problem: -CXR results reviewed -Discussed with ID, recommend continuing Zosyn as it provides adequate coverage -Azithromycin 500 mg daily for 5 days added to current regimen -COVID PCR ordere per ID recs to rule out COVID pneumonia -Continue facemask O2 and continuous pulse ox -If no improvment in symptoms consider pulm consult and CT PE. PReviously ordered, but patient declined due to IV placment. Discussed importance of scan and patient to consider. (2) Retained products of conception following Current Visit: Yes Status: Acute Plan to address problem: POD #3 s/p suction D&C in stable condition (3) Sepsis Current Visit: Yes Status: Acute Qualifiers: Sepsis type: sepsis due to unspecified organism Plan to address problem: -s/p ID consult. Continue Zosyn -Discussed with patient importance of replacement of IV for continued therapy. Patient voiced understanding. -Consider transition to oral antibiotics after IV therapy. Recommend Augmentin q12 and Doxycycline 100 mg BID for 7-10 days. -Continue to trend WBC with daily CBC (4) Symptomatic anemia Current Visit: Yes Status: Acute Plan to address problem: -Hgb stable and patient asymptomatic -Will continue to monitor (5) Vaginal bleeding Current Visit: Yes Status: Resolved Plan to address problem: -Scant bleeding, will continue to monitor (6) Migraine Onset Date: ~04/27/21 Current Visit: Yes Status: Acute Qualifiers: Migraine type: without aura Plan to address problem: -s/p Fioricet with resolution Subjective Date of service: 04/29/21 Principal diagnosis: Sepsis Interval history: Patient received asleep in bed. Notes improvement of cough with Robitussin. Has some SOB, but O2 is helping. Not very talkative. Denies recent sick contacts as she works from home. Denies abdominal pain. Minimal vaginal spotting. Objective - Constitutional Vitals: Vital Signs - 12hr 04/28/21 04/28/21 04/29/21 22:02 23:47 03:10 Temperature 98.2 F 98.2 F Pulse Rate 130 H 117 H 118 H Pulse Rate [ Anterior Bilateral Throughout] Respiratory 20 20 20 Rate Respiratory Rate [Anterior Bilateral Throughout] Blood Pressure 98/41 119/66 O2 Sat by Pulse 89 94 94 Oximetry 04/29/21 04/29/21 04/29/21 04:13 07:45 07:51 Temperature 99.3 F Pulse Rate 109 H Pulse Rate [ 108 H Anterior Bilateral Throughout] Respiratory 25 H Rate Respiratory 36 H Rate [Anterior Bilateral Throughout] Blood Pressure 112/70 O2 Sat by Pulse 96 97 96 Oximetry General appearance: Present: no acute distress - Respiratory Respiratory: bilateral: CTA, rales, wheezing, negative: rhonchi - Cardiovascular Rhythm: regular Heart Sounds: Present: S1 & S2 Extremities: No edema - Gastrointestinal General gastrointestinal: Present: soft, non-tender, non-distended - Psychiatric Psychiatric: appropriate mood/affect - Labs CBC & Chem 7: 04/28/21 11:06 04/26/21 10:48 Labs: Abnormal lab results 04/28/21 Range/Units 11:06 WBC 15.9 H (4.5-11.0) K/mm3 RBC 2.56 L (3.65-5.03) M/mm3 Hgb 7.9 L (10.1-14.3) gm/dl Hct 22.7 L (30.3-42.9) % MCHC 35 H (30-34) % RDW 15.8 H (13.2-15.2) % Nucleated RBC % 3.0 H (0.0-0.9) % Seg Neutrophils # Man 11.0 H (1.8-7.7) K/mm3 Basophils # (Manual) 0.2 H (0.0-0.1) K/mm3 - Imaging and cardiology Chest x-ray: report reviewed (multiple lung opacities c/w multifocal pneumonia ) Medications & Allergies - Medications Allergies/Adverse Reactions: Allergies morphine Allergy (Verified 04/26/21 10:40) Hives Home Medications: Home Medications Medication Instructions Recorded Confirmed Last Taken Type No Known Home Medications [No 04/26/21 04/26/21 Unknown History Reported Home Medications] Active Medications: Generic Name Dose Route Start Last Admin Trade Name Freq PRN Reason Stop Dose Admin Acetaminophen 650 mg 04/26/21 15:51 04/28/21 17:02 Acetaminophen 325 Mg Tab PO 650 mg Q4H PRN Administration Pain, Mild (1-3) Acetaminophen/Butalbital/Caffeine 1 tab 04/28/21 09:41 04/29/21 09:13 Butalb/Acetaminophen/Caffeine Tab PO 1 tab Q4H PRN Administration Headache Azithromycin 500 mg 04/29/21 10:00 Azithromycin 250 Mg Tab PO 05/03/21 10:01 QDAY [facility] Protocol Guaifenesin 10 ml 04/29/21 03:42 04/29/21 09:13 Guaifenesin Dm 200/20 Mg Oral Liqd 10 Ml PO 10 ml Q4H PRN Administration Cough Dextrose/Lactated Ringer's 1,000 mls @ 150 mls/hr 04/27/21 01:00 04/28/21 03:31 D5lr IV 150 mls/hr DIRECT [facility] Administration Piperacillin Sod/Tazobactam Sod 4.5 gm in 100 mls @ 200 mls/hr 04/27/21 15:00 04/29/21 03:08 Zosyn/Ns 4.5gm/100ml IV 200 mls/hr Q8HR [facility] Administration Protocol Lactated Ringer's 1,000 mls @ 150 mls/hr 04/28/21 18:00 04/29/21 09:06 Lactated Ringers IV 150 mls/hr DIRECT [facility] Administration Ibuprofen 800 mg 04/26/21 15:51 04/28/21 03:28 Ibuprofen 800 Mg Tab PO 800 mg Q8H PRN Administration Pain, Moderate (4-6) Oxycodone/Acetaminophen 1 tab 04/26/21 15:51 04/27/21 17:28 Oxycodone /Acetaminophen 5-325mg Tab PO 1 tab Q6H PRN Administration Pain, Moderate (4-6) Sodium Chloride 10 ml 04/26/21 15:51 Sodium Chloride 0.9% 10 Ml Flush Syringe IV PRN PRN LINE FLUSH Sodium Chloride 1 applic 04/29/21 04:50 04/29/21 05:34 Bayard Saline Nasal Gel 14.1 Gm NS 1 applic PRN PRN Administration Dry Nasal Passages
--- NOTE | 2021-04-29 09:31 | Progress Note ---
Assessment and Plan Cultures: 04/26/2021 blood culture: No growth Assessment: 25-year-old female with no medical history, who had a 5 weeks and [facility] for a medical admitted on 04/26/2021 secondary to dizziness, syncopal episode and uterine cramping associated with bleeding: #Severe sepsis: likely secondary to septic +/-severe anemia. #Septic incomplete : Likely secondary to vaginal adithya and anaerobes. Status post I+C on 03/26/2021. #Bilateral multifocal pneumonia, acute hypoxic respiratory failure Recommendations: -Recheck COVID-19 PCR -Added IV vancomycin to cover for HAP with PK consult -MRSA nasal PCR ordered, if negative, discontinue vancomycin -Add azithromycin for atypical coverage -Zosyn switched to cefepime, Flagyl to avoid Zosyn and vancomycin combination related nephrotoxicity -Monitor WBC -Consider CT chest angio to rule out pulmonary embolism d/w Carlyn from [employer] team Tylor Escalante MD, FACP [facility] O: [phone] F: [phone] Subjective Date of service: 04/29/21 Principal diagnosis: Sepsis Interval history: Patient spiked a fever of 102.7 F. Also coughing and hypoxic with chest x-ray findings of multifocal pneumonia. Objective - Exam Narrative Exam: Physical Exam (reviewed in chart to minimize risk of transmission) Constitutional: deferred Head, Ears, Nose: deferred Eyes: deferred Neck: deferred Oral: deferred Cardiovascular: deferred Respiratory: deferred GI: deferred Musculoskeletal: deferred Skin: deferred Hem/Lymphatic: deferred Psych: deferred Neurological: deferred - Constitutional Vitals: Vital Signs Temp Pulse Resp BP Pulse Ox 99.3 F 109 H 25 H 112/70 96 04/29/21 07:51 04/29/21 07:51 04/29/21 07:51 04/29/21 07:51 04/29/21 07:51 Temperature -Last 24 Hours Temperature 99.3 F Temperature 98.2 F Temperature 98.2 F Temperature 102.7 F Temperature 98.4 F - Labs CBC & Chem 7: 04/28/21 11:06 04/26/21 10:48 Labs: Abnormal lab results 04/28/21 Range/Units 11:06 WBC 15.9 H (4.5-11.0) K/mm3 RBC 2.56 L (3.65-5.03) M/mm3 Hgb 7.9 L (10.1-14.3) gm/dl Hct 22.7 L (30.3-42.9) % MCHC 35 H (30-34) % RDW 15.8 H (13.2-15.2) % Nucleated RBC % 3.0 H (0.0-0.9) % Seg Neutrophils # Man 11.0 H (1.8-7.7) K/mm3 Basophils # (Manual) 0.2 H (0.0-0.1) K/mm3
[2021-04-29] MEDS ORDERED: VANCOMYCIN PHARMACY TO DOSE IV SCH (10:00)
[2021-04-29] MEDS: AZITHROMYCIN 250 MG TAB PO SCH (10:32)
--- NOTE | 2021-04-29 10:40 | Cat Scan Report ---
CTA chest with contrast INDICATION : r/o PE omni 350 100 ml. TECHNIQUE: Axial imaging performed through the chest, with contrast bolus timing set to maximize opa cification of the pulmonary arteries. 3-plane MIP reformatted images were obtained. All CT scans at this location are performed using CT dose reduction for ALARA by means of automated exposure control. 100 mL of intravenous contrast administered. COMPARISON: Chest x-ray from today FINDINGS: Bolus/PTE: Contrast bolus timing is adequate. No filling defect is present to suggest PTE. Mediastinum: Heart and great vessels appear normal. No pathologic mediastinal adenopathy. Lungs: There is moderate patchy multifocal airspace disease throughout the lungs overall greatest in the left lower lobe. Upper abdomen: Limited imaging of the upper abdomen shows nothing acute. Bones: Degenerative changes in the spine with nothing acute. IMPRESSION: 1. Negative for PTE. 2. Moderate patchy multifocal airspace disease throughout the lungs as may be seen with pneumonia or an atypical process. Signer Name: Robson Mederos MD Signed: 04/29/2021 10:36 AM Workstation Name: [id number]
[2021-04-29] MEDS: CEFEPIME/NS 2 GM/100 ML 2 GM/100 ML BAG IV SCH ×2 (10:50→22:20)
[2021-04-29] MEDS: ASCORBIC ACID 500 MG TAB PO SCH (11:33)
[2021-04-29] MEDS: metroNIDAZOLE/NS 500 MG/100 ML 500 MG/100 ML BAG IV SCH ×2 (11:34→18:16)
[2021-04-29] MEDS ORDERED: VANCOMYCIN 1,250 MG in SODIUM CHLORIDE 0.9% 500 ML 500 ML IV SCH (12:00)
[2021-04-29 14:01] LABS: Hematocrit 24.9 % (30.3-42.9); Hemoglobin 8.6 gm/dl (10.1-14.3); Mean Corpuscular HGB Conc 35 % (30-34); Mean Corpuscular Volume 90 fl (79-97); Platelet Count 215 K/mm3 (140-440); Red Blood Count 2.79 M/mm3 (3.65-5.03); Red Cell Distribution Width 15.4 % (13.2-15.2)
[2021-04-29] MEDS: VANCOMYCIN 1,250 MG in SODIUM CHLORIDE 0.9% 250ML 250 ML IV SCH ×2 (14:27→23:59)
[2021-04-29 17:32] LABS: Band Neutrophils # (Manual) 0.5 K/mm3; Platelet Estimate Consistent w Auto; Total Cells Counted 100
[2021-04-30] MEDS: metroNIDAZOLE/NS 500 MG/100 ML 500 MG/100 ML BAG IV SCH ×3 (03:10→20:15)
[2021-04-30] MEDS: CEFEPIME/NS 2 GM/100 ML 2 GM/100 ML BAG IV SCH ×2 (10:55→23:20)
[2021-04-30] MEDS: guaiFENesin DM 200/20 MG ORAL LIQD 10 ML PO PRN (11:06)
[2021-04-30] MEDS: AZITHROMYCIN 250 MG TAB PO SCH (11:06)
[2021-04-30] MEDS: ACETAMINOPHEN 325 MG TAB PO PRN (11:16)
[2021-04-30] MEDS: ASCORBIC ACID 500 MG TAB PO SCH (11:24)
--- NOTE | 2021-04-30 13:12 | Progress Note ---
Assessment and Plan Cultures: 04/26/2021 blood culture: No growth Urine culture no growth MRSA PCR neg Assessment: 25-year-old female with no medical history, who had a 5 weeks and [facility] for a medical admitted on 04/26/2021 secondary to dizziness, syncopal episode and uterine cramping associated with bleeding: #Severe sepsis: likely secondary to septic +/-severe anemia. #Septic incomplete : Likely secondary to vaginal adithya and anaerobes. Status post I+C on 03/26/2021. #Bilateral multifocal pneumonia, acute hypoxic respiratory failure. CTA no PE, +patchy multifocal airspace disease. Patient on room air. MRSA PCR neg, stop vancomycin. #UTI: urine cx neg Recommendations: -F/u Recheck COVID-19 PCR -Check CRP, ferritin, ddimer, procal -Continue cefepime and flagyl -Continue azithromycin for atypical coverage -Anticipate to dc levaquin 750 mg po daily, flagyl 500 mg po tid and doxycycline 100 mg po bid total10 days till 05/05/2021 Kimmy Lopez MD Infectious Diseases Ssrs Report Developer [facility] M [phone] O [phone] Subjective Date of service: 04/30/21 Principal diagnosis: Sepsis Interval history: Patient feels better. Remains with some cough. No fever. Has any nausea, vomiting, diarrhea. Remains vaginal bleeding, mild. Objective - Exam Narrative Exam: General appearance: Alert in NAD pleasant Eyes: anicteric sclerae, moist conjunctivae; no lid-lag; PERRLA HENT: Normocephalic, Atraumatic; normal external ears, nares open, oropharynx clear. Neck: supple, tracheal midline, no JVD Lungs: scattered rhonchi CV: RRR no murmur Abdomen: Soft, non-tender; no masses or hepatosplenomegaly Extremities: no edema, no cyanosis Skin: No rash. Psych: no agitated Neuro: alert and oriented x 3. Moving all extermities - Constitutional Vitals: Vital Signs Temp Pulse Resp BP Pulse Ox 98.9 F 120 H 20 123/67 99 04/30/21 05:24 04/30/21 05:24 04/30/21 05:24 04/30/21 05:24 04/30/21 05:24 Temperature -Last 24 Hours Temperature 98.9 F Temperature 97.2 F Temperature 98.5 F Temperature 99.2 F Temperature 98.4 F - Labs CBC & Chem 7: 04/29/21 13:38 04/30/21 05:46 Labs: Abnormal lab results 04/29/21 04/30/21 Range/Units 13:38 05:46 WBC 12.0 H (4.5-11.0) K/mm3 RBC 2.79 L (3.65-5.03) M/mm3 Hgb 8.6 L (10.1-14.3) gm/dl Hct 24.9 L (30.3-42.9) % MCHC 35 H (30-34) % RDW 15.4 H (13.2-15.2) % Seg Neuts % (Manual) 35.0 L (40.0-70.0) % Lymphocytes % (Manual) 47.0 H (13.4-35.0) % Lymphocytes # (Manual) 5.6 H (1.2-5.4) K/mm3 Creatinine 0.5 L (0.6-1.2) mg/dL
--- NOTE | 2021-04-30 18:16 | Progress Note ---
Assessment and Plan - Patient Problems (1) Retained products of conception following Current Visit: Yes Status: Acute Plan to address problem: Patient doing well postoperatively from D&C standpoint (2) Sepsis Current Visit: Yes Status: Acute Qualifiers: Sepsis type: sepsis due to unspecified organism (3) Symptomatic anemia Current Visit: Yes Status: Resolved (4) Vaginal bleeding Current Visit: Yes Status: Resolved (5) Pneumonia Onset Date: ~04/29/21 Current Visit: Yes Status: Acute Qualifiers: Pneumonia type: due to unspecified organism Laterality: bilateral Qualified Code(s): J18.9 - Pneumonia, unspecified organism Plan to address problem: Subjectively patient states she feels better. Appreciate help from infectious disease we will continue present antibiotic regimen. Patient repeat COVID-19 test was negative. We will continue to monitor patient's symptoms possible discharge in the near future Subjective Date of service: 04/30/21 Principal diagnosis: Sepsis Interval history: Patient states her breathing is better. Mother states that she had some tingling/stabbing in her legs earlier patient says not present at this time Objective - Constitutional Vitals: Vital Signs - 12hr 04/30/21 08:00 Respiratory 19 Rate O2 Sat by Pulse 97 Oximetry General appearance: Present: no acute distress - Respiratory Respiratory effort: normal - Breasts Breasts: deferred - Cardiovascular Rhythm: regular Extremities: no ischemia, pulses intact, Full ROM Extremity abnormal: edema (1+) - Gastrointestinal General gastrointestinal: Present: soft - Genitourinary Female genitourinary: deferred - Integumentary Integumentary: clear, warm, dry - Labs CBC & Chem 7: 04/29/21 13:38 04/30/21 05:46 Labs: Abnormal lab results 04/30/21 Range/Units 05:46 Creatinine 0.5 L (0.6-1.2) mg/dL Medications & Allergies - Medications Allergies/Adverse Reactions: Allergies morphine Allergy (Verified 04/26/21 10:40) Hives Home Medications: Home Medications Medication Instructions Recorded Confirmed Last Taken Type No Known Home Medications [No 04/26/21 04/26/21 Unknown History Reported Home Medications] Active Medications: Generic Name Dose Route Start Last Admin Trade Name Freq PRN Reason Stop Dose Admin Acetaminophen 650 mg 04/26/21 15:51 04/30/21 11:16 Acetaminophen 325 Mg Tab PO 650 mg Q4H PRN Administration Pain, Mild (1-3) Acetaminophen/Butalbital/Caffeine 1 tab 04/28/21 09:41 04/29/21 09:13 Butalb/Acetaminophen/Caffeine Tab PO 1 tab Q4H PRN Administration Headache Ascorbic Acid 500 mg 04/29/21 12:00 04/30/21 11:24 Ascorbic Acid 500 Mg Tab PO 500 mg QDAY [place] Administration Azithromycin 500 mg 04/29/21 10:00 04/30/21 11:06 Azithromycin 250 Mg Tab PO 05/03/21 10:01 500 mg QDAY [place] Administration Protocol Guaifenesin 10 ml 04/29/21 03:42 04/30/21 11:06 Guaifenesin Dm 200/20 Mg Oral Liqd 10 Ml PO 10 ml Q4H PRN Administration Cough Dextrose/Lactated Ringer's 1,000 mls @ 150 mls/hr 04/27/21 01:00 04/28/21 03:31 D5lr IV 150 mls/hr DIRECT [place] Administration Lactated Ringer's 1,000 mls @ 150 mls/hr 04/28/21 18:00 04/29/21 22:19 Lactated Ringers IV 150 mls/hr DIRECT [place] Administration Cefepime HCl 2 gm in 100 mls @ 200 mls/hr 04/29/21 10:30 04/30/21 11:25 Cefepime/Ns 2 Gm/100 Ml IV Infused Q12HR [facility] Infusion Protocol Metronidazole 500 mg in 100 mls @ 100 mls/hr 04/29/21 11:00 04/30/21 13:15 Flagyl 500 Mg/100 Ml IV Infused Q8H [facility] Infusion Protocol Ibuprofen 800 mg 04/26/21 15:51 04/28/21 03:28 Ibuprofen 800 Mg Tab PO 800 mg Q8H PRN Administration Pain, Moderate (4-6) Oxycodone/Acetaminophen 1 tab 04/26/21 15:51 04/27/21 17:28 Oxycodone /Acetaminophen 5-325mg Tab PO 1 tab Q6H PRN Administration Pain, Moderate (4-6) Sodium Chloride 10 ml 04/26/21 15:51 Sodium Chloride 0.9% 10 Ml Flush Syringe IV PRN PRN LINE FLUSH Sodium Chloride 1 applic 04/29/21 04:50 04/29/21 05:34 [place] Saline Nasal Gel 14.1 Gm NS 1 applic PRN PRN Administration Dry Nasal Passages
[2021-04-30 18:27] LABS: Basophils % (Auto) 0.2 % (0.0-1.8); Eosinophils # (Auto) 0.4 K/mm3 (0.0-0.4); Hematocrit 28.3 % (30.3-42.9); Hemoglobin 9.7 gm/dl (10.1-14.3); Lymphocytes % (Auto) 30.7 % (13.4-35.0); Mean Corpuscular HGB Conc 34 % (30-34); Mean Corpuscular Volume 89 fl (79-97); Monocytes # (Auto) 0.8 K/mm3 (0.0-0.8); Monocytes % (Auto) 8.5 % (0.0-7.3); Platelet Count 286 K/mm3 (140-440); Red Blood Count 3.17 M/mm3 (3.65-5.03); Red Cell Distribution Width 15.7 % (13.2-15.2)
[2021-05-01] MEDS: metroNIDAZOLE/NS 500 MG/100 ML 500 MG/100 ML BAG IV SCH (05:33)
[2021-05-01] MEDS: LACTATED RINGERS 1,000 ML IV SCH (05:33)
[2021-05-01] MEDS: CEFEPIME/NS 2 GM/100 ML 2 GM/100 ML BAG IV SCH (10:29)
[2021-05-01] MEDS: AZITHROMYCIN 250 MG TAB PO SCH (10:30)
[2021-05-01] MEDS: ASCORBIC ACID 500 MG TAB PO SCH (10:30)
--- NOTE | 2021-05-01 12:25 | Progress Note ---
Assessment and Plan Cultures: 04/26/2021 blood culture: No growth Urine culture no growth MRSA PCR neg SARS-CoV-2 PCR negative x2. Assessment: 25-year-old female with no medical history, who had a 5 weeks and [facility] for a medical admitted on 04/26/2021 secondary to dizziness, syncopal episode and uterine cramping associated with bleeding: #Severe sepsis: Resolved. Likely secondary to septic +/-severe anemia. #Septic incomplete : Likely secondary to vaginal adithya and anaerobes. Status post I+C on 03/26/2021. #Bilateral multifocal pneumonia, acute hypoxic respiratory failure. CTA no PE, +patchy multifocal airspace disease. Patient on room air. MRSA PCR neg, stop vancomycin. #UTI: urine cx neg Recommendations: -Ok to dc on levaquin 750 mg po daily, flagyl 500 mg po tid and doxycycline 100 mg po bid total10 days till 05/05/2021 Will sign off Please call us if any question. Kimmy Lopez MD Infectious Diseases Legal Director [facility] ([facility]) M [phone] O [phone] Subjective Date of service: 05/01/21 Principal diagnosis: Sepsis Interval history: Patient feels better. No complaints. Wants to go home. Objective - Exam Narrative Exam: General appearance: Alert in NAD pleasant Eyes: anicteric sclerae, moist conjunctivae; no lid-lag; PERRLA HENT: Normocephalic, Atraumatic; normal external ears, nares open, oropharynx clear. Neck: supple, tracheal midline, no JVD Lungs: scattered rhonchi CV: RRR no murmur Abdomen: Soft, non-tender; no masses or hepatosplenomegaly Extremities: no edema, no cyanosis Skin: No rash. Psych: no agitated Neuro: alert and oriented x 3. Moving all extermities - Constitutional Vitals: Vital Signs Temp Pulse Resp BP Pulse Ox 97.8 F 98 H 18 103/61 99 05/01/21 10:21 05/01/21 10:21 05/01/21 10:21 05/01/21 10:21 05/01/21 10:30 Temperature -Last 24 Hours Temperature 97.8 F Temperature 97.7 F Temperature 98.1 F Temperature 100.7 F Temperature 98.1 F Temperature 98.3 F Temperature 98.2 F - Labs CBC & Chem 7: 04/30/21 17:42 04/30/21 05:46 Labs: Abnormal lab results 04/30/21 04/30/21 04/30/21 Range/Units 17:42 17:42 17:42 RBC 3.17 L (3.65-5.03) M/mm3 Hgb 9.7 L (10.1-14.3) gm/dl Hct 28.3 L (30.3-42.9) % RDW 15.7 H (13.2-15.2) % [place] % (Auto) 8.5 H (0.0-7.3) % D-Dimer 802.38 H (0-234) ng/mlDDU C-Reactive Protein 1.90 H (0.00-1.30) mg/dL
--- NOTE | 2021-05-01 14:22 | Discharge Summary ---
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 Patient states she reports approximately 5 weeks when she presented [facility], 8 days ago, for medical . Patient states she was given a pill to take at that time and was instructed to take the other 4 pills, all at once, within 48 hours. Patient states she had bleeding after taking the first pill so she waited until 5 days later to take the 4 pills 3 days ago Friday the .. Patient reports dizziness and syncopal episode. EMS was called, reports initial systolic BP in the 60s. Patient states the cramping and bleeding have improved greatly, however she remains lightheaded. Patient's work-up in ED revealed a hemoglobin of 4.4 ultrasound shows "probable failed ge stational sac" with products and cervical os. Patient still passing large clots. Attempted evacuation of her cervical os was performed in the ED but was unsuccessful. Patient appeared to be septic and very anemic the decision was made to moved the operating room for suction D&C. She was admitted for IV antibiotics. Infectious disease consult was ordered. Antibiotics were changed. Patient did well until hospital day #2 where she had a fever and complained of coughing. Chest x-ray revealed pneumonia. Antibiotics were again changed. Coughing improved. Today patient is doing well desires discharge home. She denies vaginal bleeding Disposition: 01 HOME / SELF CARE / HOMELESS Final Discharge Diagnosis (Prints w/discharge instructions): Septic . Pneumonia. Anemia - Discharge Diagnoses (1) Retained products of conception following Status: Acute (2) Sepsis Status: Acute Qualifiers: Sepsis type: sepsis due to unspecified organism (3) Symptomatic anemia Status: Resolved (4) Vaginal bleeding Status: Resolved (5) Migraine Status: Acute Qualifiers: Migraine type: without aura (6) Pneumonia Status: Acute Qualifiers: Pneumonia type: due to unspecified organism Laterality: bilateral Qualified Code(s): J18.9 - Pneumonia, unspecified organism Core Measure Documentation - Palliative Care Palliative Care/ Comfort Measures: Not Applicable - Core Measures Any of the following diagnoses?: none Exam - Constitutional Vitals: Temp Pulse Resp BP Pulse Ox 97.8 F 98 H 18 103/61 99 05/01/21 10:05/01/21 10:05/01/21 10:05/01/21 10:05/01/21 10:30 General appearance: Present: no acute distress Plan Activity: other (No sex.) Weight Bearing Status: Full Weight Bearing Diet: regular Follow up with: TY RANGEL MD [Staff Physician] - 7 Days PRIMARY CAREMD [Primary Care Provider] - 3-5 Days JEANNE WARD MD [Staff Physician] - 48 Hours Forms: Work/School Release Form Prescriptions: Doxycycline Monohydrate 100 mg PO BID #8 tablet metroNIDAZOLE [Flagyl] 500 mg PO Q8HR #12 tablet levoFLOXacin [Levaquin] 750 mg PO QDAY #4 tablet Ibuprofen [Motrin 800 MG tab] 800 mg PO TID PRN #30 tablet PRN Reason: Pain
[2021-05-01 17:56] VITALS: BP 100/54
== END 2021-05-01 15:20 | disposition home or self-care (01) | DRG 770 ==
LOC: ED 10:08 → OB 15:52
PROVIDERS: ADMIT Obstetrics & Gynecology; ATTEND Obstetrics & Gynecology
PROC: 10D17ZZ Extraction of Products of Conception, Retained, Via Natural or Artificial Opening (ICD-10-PCS; principal; 2021-04-26)
PROC: 30233N1 Transfusion of Nonautologous Red Blood Cells into Peripheral Vein, Percutaneous Approach (ICD-10-PCS; 2021-04-26)
DX: O03.4 Incomplete spontaneous abortion without complication (principal); A41.9 Sepsis, unspecified organism; R65.20 Severe sepsis without septic shock; J18.9 Pneumonia, unspecified organism; J96.01 Acute respiratory failure with hypoxia; N39.0 Urinary tract infection, site not specified; N93.9 Abnormal uterine and vaginal bleeding, unspecified; D64.9 Anemia, unspecified; Z20.822 Contact with and (suspected) exposure to COVID-19; Z88.5 Allergy status to narcotic agent; Z90.49 Acquired absence of other specified parts of digestive tract; G43.909 Migraine, unspecified, not intractable, without status migrainosus
CPT/HCPCS: 36415; 71045; 71275; 76801; 80048; 81001; 82140; 82565; 82728; 84145; 84702; 85007; 85014; 85018; 85025; 85379; 86140; 86850; 86900; 86901; 86920; 87040; 87086; 87641; 88305; 94640; 94760; G0378; J0692; J1100; J1170; J1580; J1885; J2210; J2250; J2370; J2405; J2543; J2704; J3370; J3490; J7030; J7040; J7050; J7120; J7121; P9016; Q9967; U0003